=== PATIENT | female | born 1950 | race Asian ===

== ENCOUNTER 2024-07-22 13:33 | Emergency (ER) | payer OTHER ==
[~2024-07-22] VITALS: Ht 162.6 cm; Wt 59.0 kg
[2024-07-22] MEDS ORDERED: VERA180ERB PO (15:06)
[2024-07-22] MEDS ORDERED: ATORVASTATIN CA20 MG PO (15:06)
== END 2024-07-22 15:12 | disposition home or self-care (01) ==
LOC: ER 13:33
DX: H11.31 Conjunctival hemorrhage, right eye (principal); I10 Essential (primary) hypertension; Z88.2 Allergy status to sulfonamides; Z79.899 Other long term (current) drug therapy
CPT/HCPCS: 70450; 99283-25